=== PATIENT | male | born 1955 | race Caucasian/White ===

== ENCOUNTER 2017-07-14 02:48 | Emergency (ER) | payer MEDICARE ==
[2017-07-14 02:49] VITALS: BMI 25.0
--- NOTE | 2017-07-14 02:56 | C.PDOC ---
History Of Present Illness patient presents with severe shortness of breath. Speaking 4-5 word sentences. Quit smoking 3 days ago. Has had some yellowish productive cough, and was started on doxycycline by his PMD. Ptatient is very anxious. Saturation 97-100% Time Seen by Provider: 07/14/17 02:55 History Per: Patient, Family History/Exam Limitations: clinical condition Onset/Duration Of Symptoms: Days Current Symptoms Are (Timing): Worse Initiating Event: Upper Respiratory Illness Exacerbating Factor(s): Exertion, Coughing Current Respiratory Medications: See Home Med List Severity: Severe Pain Scale Rating Of: 8 Associated Symptoms: Productive Cough (yellow), Heart Racing, Anxiety. denies: Fever, Chills, Chest Pain, Ankle/Leg Swelling Reports Recently: Seen In ED, Treated By A Physician Recent travel outside of the [place]: No Past Medical History Reviewed: Historical Data, Nursing Documentation, Vital Signs Vital Signs: Last Vital Signs Temp 98.4 F 07/14/17 03:05 Pulse 129 H 07/14/17 04:18 Resp 24 07/14/17 03:05 BP 133/95 H 07/14/17 03:05 Pulse Ox 94 L 07/14/17 06:08 - Medical History PMH: Anemia, Asthma, Emphysema, HTN, Hypercholesterolemia, Kidney Stones, Chronic Kidney Disease - [facility] Procedures TRANSURETH BLADD BIOPSY (04/06/15) Family History: States: No Known Family Hx Review Of Systems Review Of Systems: ROS cannot be obtained secondary to pt's inabilty to answer questions. Physical Exam - Physical Exam Appears: In Acute Distress, Agitated Skin: Warm, Dry Head: Normacephalic Eye(s): bilateral: Normal Inspection Oral Mucosa: Dry Neck: Trachea Midline, Supple Chest: Symmetrical, Other (gynecomastia) Cardiovascular: Rhythm Regular (tachy) Respiratory: Decreased Breath Sounds, Accessory Muscle Use, No Rales, Rhonchi, Wheezing Gastrointestinal/Abdominal: Soft, No Tenderness, Distention, Ascites (possible small amount) Back: No CVA Tenderness Extremity: No Tenderness Extremity: Bilateral: Atraumatic, No Pedal Edema Pulses: Left Dorsalis Pedis: Normal, Right Dorsalis Pedis: Normal Neurological/Psych: Oriented x3, Normal Speech, Normal Cognition Gait: Steady ED Course And Treatment - Laboratory Results Result Diagrams: 07/14/17 03:20 07/14/17 03:20 ECG: Interpreted By Me, Viewed By Me ECG Rhythm: Sinus Tachycardia (132), ST/T Changes O2 Sat by Pulse Oximetry: 94 Pulse Ox Interpretation: Normal - Radiology CXR: Interpreted by Me, Viewed By Me Progress Note: blood work, nebs, bipap,steroids. spoke with dr meraz, icu, - will come and see the pt in the ed. 4:43 am pt getting more restless, agitated and combative. Will intubate. Dr Meraz at bedside. Pt lost pulse. cpr initiated. Placed right humeral head IO without difficulty. See code sheet. Son at bedside. Pt pronounced at 5:[address] espinal. is aware of his patient's . He states that he saw the pt yesterday and wanted to admit him to the hospital, but the patient refused Critical Care Time - Critical Care Note Total Time (in mins): 82 Documented critical care: time excludes all time spent performing seperately billable procedures. Endotracheal Intubation - Endotracheal Intubation Intubated With ETT Size: 75 Indication: Respiratory Failure Intubated: Orally Pre-Intubation Airway Assessment: Ventilated And Oxygenated Medications Used During Pre-Intubation: Etomidate (Use propofol) Paralyzed With: Succinylcholine Post-Intubation Assessment: ETT Secured AT (cm): (25), Breath Sounds Equal Bilat , Placement Confirmed Via CXR, Color Change W/End Tidal CO2 Detector, Oxygen Saturation: (93) Disposition Discussed With : Jannette Espinal Comment: accepted the pt on his service and took over the care at 4:25 AM Counseled Patient/Family Regarding: Studies Performed, Diagnosis - Disposition Disposition: HOSPITALIZED Disposition Time: 02:55 Condition: CRITICAL - POA Present On Arrival: Poor Glycemic Control - Clinical Impression Clinical Impression: COPD with acute exacerbation, Respiratory distress, CHF (congestive heart failure) Decision To Admit - Pt Status Changed To: Hospital Disposition Of: Inpatient - Admit Certification Admit to Inpatient:: After my assessment, the patient will require hospitalization for at least two midnights. This is because of the severity of symptoms shown, intensity of services needed, and/or the medical risk in this patient being treated as an outpatient. - InPatient: Physician Admission Certification: I certify that this patient requires 2 or more midnights of care for the following reason:: After my assessment, the patient will require hospitalization for at least two midnights. This is because of the severity of symptoms shown, intensity of services needed, and/or the medical risk in this patient being treated as an outpatient. - . Bed Request Type: ICU Admitting Physician: Jannette Espinal Patient Diagnosis: COPD with acute exacerbation, Respiratory distress, CHF (congestive heart failure)
[2017-07-14 03:01] VITALS: BP 133/95; RESP 24
[2017-07-14] MEDS ORDERED: Albuterol-Ipratrop 3 mg / 0.5 (3 ml) UD ONE (03:06)
[2017-07-14 03:07] VITALS: TEMP 98.4; O2SAT 94
[2017-07-14] MEDS: Albuterol-Ipratrop 3 mg / 0.5 (3 ml) UD IH SCH (03:24)
[2017-07-14 03:25] LABS: BASO % 0.1 % (0.0-2.0); EOS % 0.1 % (0.0-4.0); HEMATOCRIT 49.8 % (35.0-51.0); LYMPH # 0.6 K/uL (1.0-4.3); LYMPH % 5.9 % (20.0-40.0); MEAN CELL VOLUME 89.6 fL (80.0-94.0); MEAN CORPUSCULAR HEMOGLOBIN 29.2 pg (27.0-31.0); MEAN CORPUSCULAR HGB CONC 32.6 g/dL (33.0-37.0); MEAN PLATELET VOLUME 9.7 fL (7.2-11.7); MONO % 10.4 % (0.0-10.0); PLATELET COUNT 209 K/uL (130-400); WHITE BLOOD COUNT 9.6 K/uL (4.8-10.8)
[2017-07-14 03:30] LABS: ABG ALLEN TEST POS; DRAW SITE R RAD
[2017-07-14 03:31] LABS: CHLORIDE 101 mmol/L (98-107)
[2017-07-14 03:32] LABS: POTASSIUM 4.4 mmol/L (3.6-5.2); SODIUM 136 mmol/L (132-148)
[2017-07-14 03:34] LABS: GFR AFRICAN-AMERICAN > 60
[2017-07-14 03:35] LABS: ALB/GLOB RATIO 1.3 (1.0-2.1); ALKALINE PHOSPHATASE 72 U/L (38-126); ALT/SGPT 49 U/L (21-72); AST/SGOT 34 U/L (17-59); BILIRUBIN,TOTAL 0.6 mg/dL (0.2-1.3); BLOOD UREA NITROGEN 18 mg/dL (9-20); CALCIUM 9.3 mg/dl (8.6-10.4); CARBON DIOXIDE 21 mmol/L (22-30); GLUCOSE,RANDOM 220 mg/dL (75-110)
[2017-07-14 03:36] LABS: MAGNESIUM 1.5 mg/dL (1.6-2.3)
[2017-07-14] MEDS ORDERED: Magnesium Sulfate 1 gm in D5W 1 GM/100 ML BAG IVPB ONE ×2 (03:43→03:47)
[2017-07-14] MEDS ORDERED: Piperacillin/Tazobact 3.375 gm 100 ML IVPB STA (03:51)
[2017-07-14 04:28] LABS: NEUTROPHIL 82 % (50-75); TOTAL CELLS COUNTED 100
[2017-07-14] MEDS ORDERED: Succinylcholine Chloride 20 mg/ml Syr (5 ml) IV STA (04:50)
[2017-07-14] MEDS ORDERED: Propofol 10 mg/ml 1,000 MG/100 ML VIAL ONE (04:51)
[2017-07-14] MEDS ORDERED: Sodium Bicarbonate (8.4%) 50 Meq Syringe ONE (04:55)
[2017-07-14 06:17] VITALS: PULSE 129
[2017-07-14] MEDS ORDERED: Propofol 10 mg/ml Inj (20 ML) IV ONE (06:30)
--- NOTE | 2017-07-15 20:04 | CARD ---
APPROVED REPORT EKG Measurement Heart [id number] <Conclusion> Sinus tachycardia Left axis deviation Inferior infarct, age undetermined Abnormal ECG
== END 2017-07-14 09:04 ==
LOC: C.ER 02:48 → UNDOADMIN 04:24 → C.9I 04:24 → C.9E 08:18 → C.ER 09:04
DX: I13.0 Hypertensive heart and chronic kidney disease with heart failure and stage 1 through stage 4 chronic kidney disease, or unspecified chronic kidney disease (principal); I50.9 Heart failure, unspecified; N18.9 Chronic kidney disease, unspecified; I46.2 Cardiac arrest due to underlying cardiac condition; J44.1 Chronic obstructive pulmonary disease with (acute) exacerbation
CPT/HCPCS: 31720; 36600; 80053; 82140; 82803; 83735; 83880; 84484; 85025; 85610; 85730; 87040; 92950; 93005; 94640; 94660; 96365; 96375; 96376; 99285; J0171; J1940; J2060; J2543; J2704; J2930; J3475